=== PATIENT | male | born 1990 | race Hispanic/Latino ===

== ENCOUNTER 2022-12-20 16:13 | Emergency (ER) | payer BC ==
[2022-12-20] MEDS ORDERED: ASPIRIN 81 MG CHEWABLE TABLET ONE (16:50)
[2022-12-20 16:54] LABS: Absolute Lymphocytes (CBC) 1.2 K/uL (0.7-4.9); Hematocrit 45.8 % (39.6-49.0); Lymphocytes % 9.5 % (15.3-44.8); MCV 84.2 fL (80-100); MPV 8.6 fL (7.6-11.3); RBC Red Blood Cell Count 5.44 M/uL (4.33-5.43)
[2022-12-20 17:13] LABS: Albumin 3.9 g/dL (3.4-5.0); Bilirubin Direct 0.1 mg/dL (0-0.2); Bilirubin Indirect, Calculated 0.2 mg/dL (0.2-0.8); Bilirubin Total 0.3 mg/dL (0.2-1.0); Potassium 3.3 mEq/L (3.5-5.1); Protein, Total 8.3 g/dL (6.4-8.2); Troponin High Sensitivity 36.8 pg/mL (<58.9)
--- NOTE | 2022-12-20 17:38 | ER ---
Nurse's Notes [facility] Name: Mg Webster Age: 32 yrs Sex: Male : 1990 Arrival Date: 12/20/2022 Time: 16:13 Bed 17 Private MD: Diagnosis: Chest pain, unspecified;Abnormal electrocardiogram [ECG] [EKG];Essential (primary) hypertension;Hypokalemia Presentation: 12/20 16:22 Chief complaint: EMS states: lightheaded, dizzy, arm numbness in meeting at work. [place] [id number] medical team reports BGL of LOW, gave cookies to eat, BGL increased to 119. Pt c/o lingering arm numbness and left sided chest pain. Coronavirus screen: Vaccine status: Patient reports receiving the 2nd dose of the covid vaccine. Ebola Screen: No symptoms or risks identified at this time. Initial Sepsis Screen: Does the patient meet any 2 criteria? No. Patient's initial sepsis screen is negative. Does the patient have a suspected source of infection? No. Patient's initial sepsis screen is negative. Risk Assessment: Do you want to hurt yourself or someone else? Patient reports no desire to harm self or others. Onset of symptoms was December 20, 2022. 16:22 Method Of Arrival: EMS: [place] [address] 16:22 Acuity: FISH 2 eh3 Triage Assessment: 16:25 General: Appears in no apparent distress. uncomfortable, Behavior is calm, cooperative, eh3 appropriate for age. Pain: Complains of pain in chest. Neuro: Level of Consciousness is awake, alert, obeys commands, Oriented to person, place, time, situation. Cardiovascular: Capillary refill < 3 seconds Patient's skin is warm and dry. Respiratory: Airway is patent Respiratory effort is even, unlabored, Respiratory pattern is regular, symmetrical. GI: Abdomen is round non-distended. Derm: Skin is pink, warm \T\ dry. Musculoskeletal: Circulation, motion, and sensation intact. Historical: - Allergies: 16:25 No Known Allergies; eh3 - Home Meds: 16:25 None [Active]; eh3 - PMHx: 16:25 None; eh3 - PSHx: 16:25 None; eh3 - Immunization history:: Adult Immunizations up to date. - Social history:: Smoking status: unknown. Screenin:26 [facility] ED Fall Risk Assessment (Adult) Score/Fall Risk Level 0 - 2 = Low Risk. Abuse eh3 screen: Denies threats or abuse. Denies injuries from another. Nutritional screening: No deficits noted. Tuberculosis screening: No symptoms or risk factors identified. Assessment: 16:26 Reassessment: No changes from previously documented assessment. See triage assessment. 3 17:00 Reassessment: Patient appears in no apparent distress at this time. Patient and/or 3 family updated on plan of care and expected duration. Pain level reassessed. Patient is alert, oriented x 3, equal unlabored respirations, skin warm/dry/pink. 18:00 Reassessment: Patient appears in no apparent distress at this time. Patient and/or 3 family updated on plan of care and expected duration. Pain level reassessed. Patient is alert, oriented x 3, equal unlabored respirations, skin warm/dry/pink. 19:00 Reassessment: Patient appears in no apparent distress at this time. Patient and/or 3 family updated on plan of care and expected duration. Pain level reassessed. Patient is alert, oriented x 3, equal unlabored respirations, skin warm/dry/pink. 19:40 Reassessment: Nurse to nurse report received by Adam at [facility]. 3 20:00 Reassessment: Patient appears in no apparent distress at this time. Patient and/or 3 family updated on plan of care and expected duration. Pain level reassessed. Patient is alert, oriented x 3, equal unlabored respirations, skin warm/dry/pink. Vital Signs: 16:22 BP 132 / 92; Pulse 97; Resp 18; Temp 98.7(O); Pulse Ox 98% ; Weight 81.65 kg; Height 5 eh3 ft. 5 in. ; 17:00 BP 129 / 93; Pulse 94; Resp 18; Pulse Ox 96% on R/A; eh3 17:30 BP 135 / 92; Pulse 95; Resp 18; Pulse Ox 97% on R/A; eh3 18:00 BP 127 / 88; Pulse 94; Resp 18; Pulse Ox 99% on R/A; eh3 18:30 BP 118 / 86; Pulse 84; Resp 16; Pulse Ox 96% on R/A; eh3 19:00 BP 125 / 84; Pulse 92; Resp 15; Pulse Ox 98% on R/A; eh3 19:30 BP 124 / 80; Pulse 88; Resp 18; Pulse Ox 98% on R/A; eh3 20:00 BP 126 / 86; Pulse 80; Resp 15; Pulse Ox 96% on R/A; eh3 16:22 Body Mass Index 29.95 (81.65 kg, 165.1 cm) eh3 ED Course: 16:16 Patient arrived in ED. ll1 16:21 Bonilla Jordan DO is Attending Physician. ms3 16:22 Alexandra Espino, CHARLEEN is Primary Nurse. eh3 16:25 Triage completed. eh3 16:25 Arm band placed on. eh3 16:26 Patient has correct armband on for positive identification. Bed in low position. Call eh3 light in reach. Side rails up X2. Adult w/ patient. Client placed on continuous cardiac and pulse oximetry monitoring. NIBP monitoring applied. 16:26 Maintain EMS IV. Dressing intact. Good blood return noted. Site clean \T\ dry. Gauge \T\ eh 3 site: 18g RAC. 16:30 EKG done, by ED staff. aw1 17:28 XRAY Chest (1 view) In Process Unspecified. EDMS 17:46 initiated a transfer with SEEMA De Paz from the [facility]. eb 18:34 connected the yardage estimator and the hospitalist contracting officer for [facility] with Dr. quinton Velez for patient transfer consultation. 18:40 administrative approval given by SEEMA De Paz/ patient has been accepted to [facility] eb 14 tower 1451/ Dr. Cavazos has accepted the patient in transfer/ report to be called to [phone]. 20:23 No provider procedures requiring assistance completed. Patient transferred, IV remains eh3 in place. Administered Medications: 16:42 Drug: Aspirin PO Chewable Tablet 324 mg Route: PO; eh3 20:22 Follow up: Response: No adverse reaction 3 18:30 Drug: Famotidine IVP 20 mg Route: IVP; Site: right antecubital; eh3 20:22 Follow up: Response: No adverse reaction 3 18:30 Drug: NS 0.9% IV 1000 ml Route: IV; Rate: 125 ml/hr; Site: right antecubital; eh3 20:22 Follow up: IV Status: Infusion continued upon transfer; IV Intake: 250ml eh3 18:30 Drug: morphine IVP or IV 2 mg Route: IVP; Infused Over: 4 mins; Site: right antecubital;eh3 20:21 Follow up: Response: No adverse reaction eh3 18:30 Drug: Ondansetron IVP 4 mg Route: IVP; Site: right antecubital; eh3 20:21 Follow up: Response: No adverse reaction eh3 18:35 Drug: Enoxaparin Sub-Q 1 mg/kg Route: Sub-Q; Site: right lower abdomen; eh3 20:22 Follow up: Response: No adverse reaction eh3 18:40 Drug: Clopidogrel PO 300 mg Route: PO; eh3 20:22 Follow up: Response: No adverse reaction eh3 18:40 Drug: Metoprolol PO 50 mg Route: PO; eh3 20:22 Follow up: Response: No adverse reaction eh3 19:15 Drug: Potassium PO Effervescent Tablet 50 mEq Route: PO; eh3 20:21 Follow up: Response: No adverse reaction eh3 20:21 Drug: morphine IVP or IV 2 mg Route: IVP; Infused Over: 4 mins; Site: right antecubital;eh3 20:21 Follow up: Response: Medication administered at discharge. eh3 Medication: 20:23 VIS not applicable for this client. eh3 Intake: 20:22 IV: 250ml; Total: 250ml. eh3 Outcome: 17:38 ER care complete, transfer ordered by . ms3 20:23 Transferred by [facility] to [facility], Transfer form completed. eh3 20:23 Condition: stable 20:23 Instructed on the need for transfer. 20:24 Patient left the ED. 3 Signatures: Dispatcher [employer] EDMS Sherry Joyce Lynsay RN RN ll1 Bonilla Jordan DO DO ms3 Alexandra Espino RN RN eh3 Shakira West aw1 Corrections: (The following items were deleted from the chart) 19:01 17:30 Reassessment: Patient appears in no apparent distress at this time. Patient eh3 and/or family updated on plan of care and expected duration. Pain level reassessed. Patient is alert, oriented x 3, equal unlabored respirations, skin warm/dry/pink. eh3
--- NOTE | 2022-12-20 17:38 | EDPHYS ---
Physician Documentation [facility] Name: Mg Webster Age: 32 yrs Sex: Male : 1990 Arrival Date: 12/20/2022 Time: 16:13 Bed 17 Private MD: ED Physician Bonilla Jordan HPI: 12/20 17:38 This 32 yrs old Male presents to ER via EMS with complaints of chest pain. ms3 17:38 32-year-old male with no past medical history presents for chest pain that began just ms3 prior to arrival. Patient states he was in a meeting when he became dizzy and then began panicking and his hands became numb and he felt like his heart rate increased. Patient states he had similar symptoms in July and has subsequently had an EKG and echo performed by Kianna Jackson and nothing was found. Patient states he is currently set up for CT cardiac angiography on January 31. Patient states he is seeing cardiology with Kianna Jackson. Patient states his discomfort is left-sided chest pressure. Patient denies nausea vomiting or sweating.. Historical: - Allergies: 16:25 No Known Allergies; eh3 - Home Meds: 16:25 None [Active]; eh3 - PMHx: 16:25 None; eh3 - PSHx: 16:25 None; eh3 - Immunization history:: Adult Immunizations up to date. - Social history:: Smoking status: unknown. ROS: 17:38 Constitutional: Negative for fever, and chills. Neck: Negative for injury, pain, and ms3 swelling, Cardiovascular: Negative for chest pain, and palpitations. Respiratory: Negative for shortness of breath, cough, wheezing, and pleuritic chest pain, Abdomen/GI: Negative for abdominal pain, nausea, vomiting, diarrhea, and constipation, MS/Extremity: Negative for injury and deformity, Skin: Negative for injury, rash, and discoloration. 17:38 All other systems are negative. Exam: 17:38 Constitutional: This is a well developed, well nourished patient who is awake, alert, ms3 and in no acute distress. Head/Face: Normocephalic, atraumatic. Neck: Trachea midline, no cervical lymphadenopathy. Supple, full range of motion without nuchal rigidity, or vertebral point tenderness. No Meningismus. Chest/axilla: Normal chest wall appearance and motion. Nontender with no deformity. Cardiovascular: Regular rate and rhythm with a normal S1 and S2. No gallops, murmurs, or rubs. Normal PMI, no JVD. No pulse deficits. Respiratory: Lungs have equal breath sounds bilaterally, clear to auscultation and percussion. No rales, rhonchi or wheezes noted. No increased work of breathing, no retractions or nasal flaring. Abdomen/GI: Soft, non-tender, with normal bowel sounds. No distension or tympany. No guarding or rebound. No evidence of tenderness throughout. Skin: Warm, dry with normal turgor. Normal color with no rashes, no lesions, and no evidence of cellulitis. MS/ Extremity: Pulses equal, no cyanosis. Neurovascular intact. Full, normal range of motion. 17:38 ECG was reviewed by the Attending Physician. [facility] Vital Signs: 16:22 BP 132 / 92; Pulse 97; Resp 18; Temp 98.7(O); Pulse Ox 98% ; Weight 81.65 kg; Height 5 eh3 ft. 5 in. ; 17:00 BP 129 / 93; Pulse 94; Resp 18; Pulse Ox 96% on R/A; 3 17:30 BP 135 / 92; Pulse 95; Resp 18; Pulse Ox 97% on R/A; eh3 18:00 BP 127 / 88; Pulse 94; Resp 18; Pulse Ox 99% on R/A; 3 18:30 BP 118 / 86; Pulse 84; Resp 16; Pulse Ox 96% on R/A; 3 19:00 BP 125 / 84; Pulse 92; Resp 15; Pulse Ox 98% on R/A; 3 19:30 BP 124 / 80; Pulse 88; Resp 18; Pulse Ox 98% on R/A; eh3 20:00 BP 126 / 86; Pulse 80; Resp 15; Pulse Ox 96% on R/A; 3 16:22 Body Mass Index 29.95 (81.65 kg, 165.1 cm) [facility] MDM: 16:36 Patient medically screened. wy3 17:38 Differential diagnosis: abnormal EKG, acute myocardial infarction, coronary artery ms3 disease. HEART Score: History: Moderately Suspicious (1), ECG: Non specific repolarization disturbance / LBTB / PM (1), Age: < or = 45 years (0), Risk Factors: No Risk Factors Known (0), Troponin: < or = 1 x Normal Limit (0), Total Score = 2. 17:43 Data reviewed: vital signs, nurses notes, lab test result(s), EKG, and as a result, I ms3 will discharge patient. 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 Management of patient was discussed with the following: Java Lead Engineer: Discussed case with Dr Powell and he recommends patient be transferred.. I considered the following discharge prescriptions or medication management in the emergency department Medications were administered in the Emergency Department. See MAR. Independent interpretation of the following test(s) in the Emergency Department EKG: See my EKG interpretation above monitor technician: rate is 90 beats/min, Rhythm is normal sinus rhythm, regular, with no ectopy, Interpretation: normal rate, normal rhythm. Counseling: I had a detailed discussion with the patient and/or guardian regarding: the historical points, exam findings, and any diagnostic results supporting the discharge/admit diagnosis, lab results, the need to transfer to another facility. 12/20 16:37 Order name: Basic Metabolic Panel; Complete Time: 17:22 ms3 12/20 16:37 Order name: CBC with Diff; Complete Time: 17:06 ms3 12/20 16:37 Order name: LFT's; Complete Time: 17:22 ms3 12/20 16:37 Order name: Magnesium; Complete Time: 17:22 ms3 12/20 16:37 Order name: Troponin HS; Complete Time: 17:22 ms3 12/20 16:37 Order name: XRAY Chest (1 view); Complete Time: 17:56 ms3 12/20 16:37 Order name: EKG; Complete Time: 16:38 ms3 12/20 16:37 Order name: Cardiac monitoring; Complete Time: 16:39 ms3 12/20 16:37 Order name: EKG - Nurse/Tech; Complete Time: 16:39 ms3 12/20 16:37 Order name: IV Saline Lock; Complete Time: 16:39 ms3 12/20 16:37 Order name: Labs collected and sent; Complete Time: 16:49 ms3 12/20 16:37 Order name: O2 Per Protocol; Complete Time: 16:39 ms3 12/20 16:37 Order name: O2 Sat Monitoring; Complete Time: 16:39 ms3 EC:38 Rate is 95 beats/min. Rhythm is regular. QRS [place] is Normal. AL interval is normal. QRS ms3 interval is normal. QT interval is normal. T waves are Inverted in leads II, III, aVF. ST Segment is depressed in leads II, III, aVF. Clinical impression: NSR w/ Non-specific ST/T Changes. Interpreted by me. Reviewed by me. Administered Medications: 16:42 Drug: Aspirin PO Chewable Tablet 324 mg Route: PO; eh3 20:22 Follow up: Response: No adverse reaction eh3 18:30 Drug: Famotidine IVP 20 mg Route: IVP; Site: right antecubital; eh3 20:22 Follow up: Response: No adverse reaction eh3 18:30 Drug: NS 0.9% IV 1000 ml Route: IV; Rate: 125 ml/hr; Site: right antecubital; eh3 20:22 Follow up: IV Status: Infusion continued upon transfer; IV Intake: 250ml eh3 18:30 Drug: morphine IVP or IV 2 mg Route: IVP; Infused Over: 4 mins; Site: right antecubital;eh3 20:21 Follow up: Response: No adverse reaction eh3 18:30 Drug: Ondansetron IVP 4 mg Route: IVP; Site: right antecubital; eh3 20:21 Follow up: Response: No adverse reaction eh3 18:35 Drug: Enoxaparin Sub-Q 1 mg/kg Route: Sub-Q; Site: right lower abdomen; eh3 20:22 Follow up: Response: No adverse reaction eh3 18:40 Drug: Clopidogrel PO 300 mg Route: PO; eh3 20:22 Follow up: Response: No adverse reaction eh3 18:40 Drug: Metoprolol PO 50 mg Route: PO; eh3 20:22 Follow up: Response: No adverse reaction eh3 19:15 Drug: Potassium PO Effervescent Tablet 50 mEq Route: PO; eh3 20:21 Follow up: Response: No adverse reaction eh3 20:21 Drug: morphine IVP or IV 2 mg Route: IVP; Infused Over: 4 mins; Site: right antecubital;eh3 20:21 Follow up: Response: Medication administered at discharge. 3 Disposition Summary: 12/20/22 17:38 Transfer Ordered Transfer Location: Other Acute Care Facility ms3 Reason: Higher level of care ms3 Condition: Stable ms3 Problem: new ms3 Symptoms: are unchanged ms3 Accepting Physician: Dr GARCIA(12/20/22 20:24) 3 Diagnosis - Chest pain, unspecified ms3 - Abnormal electrocardiogram [ECG] [EKG] kristina - Essential (primary) hypertension kristina - Hypokalemia kristina Forms: - Medication Reconciliation Form ms3 - SBAR form ms3 Signatures: Dispatcher [employer] EDJuan Storey MD MD cha Sims, Marcus, DO DO ms3 Alexandra Espino RN RN eh3 Corrections: (The following items were deleted from the chart) 18:44 17:38 Dr [email or web address] [facility] 20:24 18:44 Dr GARCIA [facility]3
--- NOTE | 2022-12-20 17:52 | RAD REPORT ---
EXAM DESCRIPTION: Volodymyr Single View12/20/2022 5:26 pm CLINICAL HISTORY: Chest pain COMPARISON: none FINDINGS: The lungs appear clear of acute infiltrate. The heart is normal size IMPRESSION: No acute abnormalities displayed
[2022-12-20] MEDS ORDERED: MORPHINE 2 MG/ML SYR ONE ×2 (18:42→20:21)
[2022-12-20] MEDS ORDERED: CLOPIDOGREL 75 MG TABLET ONE (18:42)
[2022-12-20] MEDS ORDERED: METOPROLOL TAR 50 MG TAB ONE (18:42)
[2022-12-20] MEDS ORDERED: NA CHLORIDE 0.9% 1,000 ML ONE (18:43)
[2022-12-20] MEDS ORDERED: ENOXAPARIN 80 MG/0.8 ML SQ ONE (18:43)
[2022-12-20] MEDS ORDERED: ONDANSETRON 4 MG/2 ML VIAL ONE (18:43)
[2022-12-20] MEDS ORDERED: FAMOTIDINE 20 MG/2 ML VIAL IV ONE (18:43)
[2022-12-20] MEDS ORDERED: POTASSIUM 25 MEQ EFFERV TAB ONE (19:33)
[2022-12-20 20:30] VITALS: TEMP 98.7
[2022-12-20 20:39] VITALS: BP 126/86; O2SAT 96
--- NOTE | 2022-12-22 11:19 | EKG ---
Test Date: 2022-12-20 Test Time: 16:25:27 Asphalt Mixing Machine Operator: ESTEBAN MEASUREMENT RESULTS: Intervals: Rate: 95 CA: 118 QRSD: 84 QT: 318 QTc: 399 [place]: P: 25 CA: 118 QRS: 65 T: -30 INTERPRETIVE STATEMENTS: Normal sinus rhythm ST & T wave abnormality, consider inferior ischemia Abnormal ECG No previous ECG available for comparison Electronically Signed On 12-22-22 11:17:21 CDT by Memo Powell
== END 2022-12-20 20:24 ==
LOC: ER 16:13
DX: R94.31 Abnormal electrocardiogram [ECG] [EKG] (principal); I10 Essential (primary) hypertension; E87.6 Hypokalemia
CPT/HCPCS: 96361; 93005; 85025; 80048; 36415; 83735; 80076; 84484; 71045; 96375; 96372; 96374; 99285; J2270 ×2; J2405; J7030